=== PATIENT | male | born 1950 | race Caucasian/White ===

== ENCOUNTER 2024-03-27 16:46 | Inpatient (IN) | payer MEDICARE ==
[2024-03-27 19:10] VITALS: BMI 27.9
[2024-03-27] MEDS ORDERED: Ondansetron PF 4 MG/2 ML Vial IVP PRN (19:27)
[2024-03-27] MEDS ORDERED: Ondansetron ODT 4 MG TAB PO PRN (19:27)
[2024-03-27] MEDS ORDERED: Acetaminophen 650 MG Suppository PR PRN (19:27)
[2024-03-27] MEDS: Famotidine 20 MG TAB PO SCH (20:13)
[2024-03-27] MEDS: Acetaminophen 325 MG TAB PO SCH (20:14)
[2024-03-27] MEDS: Famotidine/PF 20 mg/2ml Vial SLOW IVP SCH (20:15)
[2024-03-27 23:11] LABS: ALT (SGPT) 26 U/L (8-55); AST (SGOT) 27 U/L (5-34); Albumin 3.7 g/dL (3.4-4.8); Alkaline Phosphatase 68 U/L (40-110); Anion Gap 13 mmol/L (10-20); BUN (Urea Nitrogen) 20 mg/dL (8.4-25.7); Bilirubin, Total 0.5 mg/dL (0.2-1.2); Calc. Creatinine Clearance 81 mL/min (70-130); Calcium 8.8 mg/dL (7.8-10.44); Carbon Dioxide 22 mmol/L (23-31); Chloride 109 mmol/L (98-107); Estimated GFR 78; Globulin 2.8 g/dL (2.4-3.5); Glucose 109 mg/dL (83-110); Potassium 3.4 mmol/L (3.5-5.1); Protein, Total 6.5 g/dL (5.8-8.1); Sodium 141 mmol/L (136-145)
[2024-03-27 23:18] LABS: #Basophils 0.05 10x3/uL (0.0-0.2); %Basophils 0.9 % (0.0-1.0); %Eosinophils 3.1 % (0.0-10.0); %Lymphocytes 33.7 % (21.0-51.0); %Monocytes 10.9 % (0.0-10.0); %Neutrophils 51.2 % (42.0-75.0); Hematocrit 44.1 % (42.0-52.0); Hemoglobin 15.3 g/dL (14.0-18.0); Mean Corpuscular HGB CONC 34.7 g/dL (32.0-36.0); Mean Platelet Volume 9.9 fL (7.4-10.4); Platelet Count 159 10x3/uL (130-400); RBC Distribution Width 12.2 % (11.5-14.5); Red Blood Cell (RBC) Count 4.64 mill/uL (4.70-6.10)
[2024-03-27 23:21] LABS: Troponin I 1.501 ng/mL (< 0.028)
[2024-03-27 23:33] LABS: Hemoglobin A1c 7.8 % (4.0-6.0)
[2024-03-27] MEDS ORDERED: Glucagon 1 MG/ML KIT IM PRN (23:47)
[2024-03-27] MEDS ORDERED: Dextrose 50% Abboject 50 ML SYRINGE SLOW IVP PRN (23:47)
[2024-03-27] MEDS ORDERED: Dextrose 5% in Water 1,000 ML IV PRN (23:47)
[2024-03-27] MEDS ORDERED: Electrolyte Replacement Protocol 1 EACH FS SCH (23:48)
[2024-03-28 00:03] LABS: Hematocrit 44.5 % (42.0-52.0); Hemoglobin 15.1 g/dL (14.0-18.0); Platelet Count 155 10x3/uL (130-400)
[2024-03-28 00:28] LABS: Critical Call Chem Troponin I DECREASING; Troponin I 1.483 ng/mL (< 0.028)
[2024-03-28] MEDS: Heparin 10,000 UNITS/ 10 ML VIAL SLOW IVP SCH (00:40)
[2024-03-28] MEDS: Heparin 25,000 units/D5W 500 ML IVPB SCH (00:44)
[2024-03-28] MEDS: Potassium Chloride 20 MEQ TAB PO SCH (01:22)
[2024-03-28 01:29] LABS: Troponin I 1.681 ng/mL (< 0.028)
[2024-03-28 02:54] LABS: Anion Gap 15 mmol/L (10-20); BUN (Urea Nitrogen) 19 mg/dL (8.4-25.7); Calc. Creatinine Clearance 77 mL/min (70-130); Calcium 8.7 mg/dL (7.8-10.44); Carbon Dioxide 23 mmol/L (23-31); Chloride 109 mmol/L (98-107); Estimated GFR 72; Glucose 97 mg/dL (83-110); Potassium 3.7 mmol/L (3.5-5.1); Sodium 143 mmol/L (136-145)
[2024-03-28 04:01] LABS: Critical Call Chem Troponin I DECREASING; Troponin I 1.373 ng/mL (< 0.028)
[2024-03-28] MEDS ORDERED: metFORMIN XR 500 MG ER.TAB PO SCH (08:00)
[2024-03-28] MEDS: Losartan 25 MG TAB PO SCH (08:50)
[2024-03-28] MEDS: Aspirin Chewable 81 MG TAB PO SCH (08:51)
[2024-03-28] MEDS: Pantoprazole DR 40 MG TAB PO SCH (08:51)
[2024-03-28] MEDS: Insulin Glargine 30 UNITS/0.3 ML VIAL SC SCH (08:52)
[2024-03-28] MEDS: Empagliflozin 25 MG TAB PO SCH (08:52)
[2024-03-28] MEDS ORDERED: Communication Order-Pharmacy FS SCH (09:15)
[2024-03-28] MEDS ORDERED: Iopamidol 370 76% 100 ML VIAL ONE (11:19)
[2024-03-28] MEDS ORDERED: fentaNYL 50 mcg/mL 1 mL Vial ONE (11:44)
[2024-03-28] MEDS ORDERED: Heparin 10,000 UNITS/ 10 ML VIAL ONE (11:44)
[2024-03-28] MEDS ORDERED: Midazolam HCl 2 mg/2 ml Vial ONE (11:44)
[2024-03-28] MEDS ORDERED: Sodium Chloride 0.9% 200 ML IV PRN (13:40)
[2024-03-28] MEDS ORDERED: Acetaminophen/Codeine 30-300mg Tablet PO PRN ×2 (13:40)
[2024-03-28] MEDS: Insulin Lispro 100 UNIT/ML 10 ML VIAL SC PRN ×2 (16:56→21:40)
[2024-03-28] MEDS: Atorvastatin Calcium 40 MG TAB PO SCH (21:38)
[2024-03-29 04:47] LABS: Anion Gap 13 mmol/L (10-20); BUN (Urea Nitrogen) 16 mg/dL (8.4-25.7); Calc. Creatinine Clearance 73 mL/min (70-130); Carbon Dioxide 22 mmol/L (23-31); Chloride 108 mmol/L (98-107); Estimated GFR 69; Glucose 135 mg/dL (83-110); Potassium 3.3 mmol/L (3.5-5.1); Sodium 140 mmol/L (136-145)
[2024-03-29] MEDS: Nitroglycerin 0.4 MG TAB (25 Tab Bottle) SL PRN (06:03)
[2024-03-29] MEDS: Potassium Chloride 20 MEQ TAB PO SCH (08:21)
[2024-03-29] MEDS: Isosorbide Mononitrate 30 MG ER.TAB PO SCH (08:21)
[2024-03-29] MEDS: Clopidogrel Bisulfate 300 MG TAB PO SCH (09:55)
[2024-03-29] MEDS: Sodium Chloride 0.9% 500 ML IV SCH (16:53)
[2024-03-30 04:45] LABS: Anion Gap 13 mmol/L (10-20); BUN (Urea Nitrogen) 20 mg/dL (8.4-25.7); Calc. Creatinine Clearance 66 mL/min (70-130); Calcium 8.6 mg/dL (7.8-10.44); Carbon Dioxide 23 mmol/L (23-31); Chloride 109 mmol/L (98-107); Estimated GFR 60; Glucose 103 mg/dL (83-110); Potassium 3.5 mmol/L (3.5-5.1); Sodium 141 mmol/L (136-145)
[2024-03-30] MEDS ORDERED: Potassium Bicarbonate/Cit Ac 20 MEQ TAB PO SCH (08:45)
[2024-03-30] MEDS: Clopidogrel Bisulfate 75 MG TAB PO SCH (09:10)
[2024-03-30] MEDS: Losartan 25 MG TAB PO SCH (09:12)
[2024-03-30] MEDS: Isosorbide Mononitrate 60 MG ER.TAB PO SCH (09:12)
[2024-03-30] MEDS: Potassium Chloride 20 MEQ TAB PO SCH (10:35)
[2024-03-31 05:08] LABS: Hematocrit 45.4 % (42.0-52.0); Hemoglobin 15.7 g/dL (14.0-18.0); Mean Corpuscular HGB CONC 34.6 g/dL (32.0-36.0); Mean Corpuscular Hemoglobin 32.4 pg (27.0-31.0); Mean Corpuscular Volume 93.8 fL (78.0-98.0); Mean Platelet Volume 9.9 fL (7.4-10.4); Platelet Count 159 10x3/uL (130-400); RBC Distribution Width 12.1 % (11.5-14.5); Red Blood Cell (RBC) Count 4.84 mill/uL (4.70-6.10)
[2024-03-31 05:24] LABS: Anion Gap 14 mmol/L (10-20); BUN (Urea Nitrogen) 21 mg/dL (8.4-25.7); Calc. Creatinine Clearance 69 mL/min (70-130); Calcium 8.7 mg/dL (7.8-10.44); Carbon Dioxide 21 mmol/L (23-31); Chloride 108 mmol/L (98-107); Estimated GFR 64; Glucose 75 mg/dL (83-110); Potassium 3.6 mmol/L (3.5-5.1); Sodium 139 mmol/L (136-145)
[2024-03-31 08:08] VITALS: BP 148/76; TEMP 98.4
[2024-03-31] MEDS: Losartan 25 MG TAB PO SCH (08:16)
== END 2024-03-31 12:34 | disposition home or self-care (01) | DRG 281 ==
LOC: OBS 18:43 → OBSVTOIN 03-29 08:52
PROVIDERS: ADMIT Hospitalist; ATTEND Internal Medicine
PROC: 4A023N7 Measurement of Cardiac Sampling and Pressure, Left Heart, Percutaneous Approach (ICD-10-PCS; principal; 2024-03-28)
PROC: B2111ZZ Fluoroscopy of Multiple Coronary Arteries using Low Osmolar Contrast (ICD-10-PCS; 2024-03-28)
PROC: B2151ZZ Fluoroscopy of Left Heart using Low Osmolar Contrast (ICD-10-PCS; 2024-03-28)
DX: I21.4 Non-ST elevation (NSTEMI) myocardial infarction (principal); I45.2 Bifascicular block; E11.9 Type 2 diabetes mellitus without complications; E78.5 Hyperlipidemia, unspecified; I25.10 Atherosclerotic heart disease of native coronary artery without angina pectoris; I10 Essential (primary) hypertension; E87.6 Hypokalemia; Z98.890 Other specified postprocedural states; Z79.899 Other long term (current) drug therapy; Z79.84 Long term (current) use of oral hypoglycemic drugs
CPT/HCPCS: 36415; 36416; 80048; 80053; 83036; 84484; 85025; 85027; 85730; 93005; 93010; 93306; 93458; 93798; 94760; 99152; C1769; C1887; J1644; J1815; J2250; J3010; Q9967